=== PATIENT | male | born 1990 | race Caucasian/White ===

== ENCOUNTER 2020-07-19 21:24 | Emergency (ER) | payer MEDICAID ==
[~2020-07-19] VITALS: Ht 182.9 cm; Wt 97.7 kg
[2020-07-19 23:49] VITALS: BP 138/80
== END 2020-07-20 00:13 | disposition home or self-care (01) ==
LOC: EMS 21:24
DX: F43.0 Acute stress reaction (principal); F17.210 Nicotine dependence, cigarettes, uncomplicated
CPT/HCPCS: 99283; Z7502